=== PATIENT | female | born 1955 ===

== ENCOUNTER 2024-11-29 09:36 | Emergency (ER) | payer MEDICARE ==
[~2024-11-29] VITALS: Ht 152.4 cm; Wt 59.9 kg
[2024-11-29] MEDS ORDERED: Bacitracin Zinc/Neomycin/Pol 15 GM TUBE T ONE (10:50)
[2024-11-29] MEDS ORDERED: MELOXICAM15 MG PO (10:54)
[2024-11-29] MEDS ORDERED: CEPHALEXIN500 M1 PO (10:54)
== END 2024-11-29 11:54 | disposition home or self-care (01) ==
LOC: ED 09:36
DX: S00.81XA Abrasion of other part of head, initial encounter (principal); S09.90XA Unspecified injury of head, initial encounter; Z88.5 Allergy status to narcotic agent; Z91.018 Allergy to other foods; W19.XXXA Unspecified fall, initial encounter; Y93.89 Activity, other specified; Y92.89 Other specified places as the place of occurrence of the external cause; Y99.8 Other external cause status